=== PATIENT | female | born 1950 | race Two or more races ===

== ENCOUNTER 2017-05-22 09:48 | Outpatient (CLI) | payer OTHER | END 2017-05-22 10:18 | disposition home or self-care (01) | LOC: SONOGRAMA 09:48 | DX: R10.84 Generalized abdominal pain (principal) ==

== ENCOUNTER 2017-05-22 10:15 | Outpatient (CLI) | payer OTHER | END 2017-05-22 10:28 | disposition home or self-care (01) | LOC: LAB 10:15 | DX: E11.65 Type 2 diabetes mellitus with hyperglycemia (principal); D68.8 Other specified coagulation defects; E03.8 Other specified hypothyroidism; E78.2 Mixed hyperlipidemia ==

== ENCOUNTER → 2017-07-12 | Outpatient (CLI) | payer OTHER | END | disposition home or self-care (01) | LOC: RAD 11:46 | DX: S22.32XA Fracture of one rib, left side, initial encounter for closed fracture (principal) ==

== ENCOUNTER → 2017-12-10 | Outpatient (CLI) | payer OTHER | END | disposition home or self-care (01) | LOC: RAD 10:59 | DX: I10 Essential (primary) hypertension (principal); H40.1133 Primary open-angle glaucoma, bilateral, severe stage; H26.499 Other secondary cataract, unspecified eye; Z01.818 Encounter for other preprocedural examination ==

== ENCOUNTER 2020-12-02 09:05 | Outpatient (CLI) | payer OTHER | END 2020-12-02 09:12 | disposition home or self-care (01) | LOC: MAMO-SONO 09:05 | PROVIDERS: ATTEND Specialist | DX: R92.1 Mammographic calcification found on diagnostic imaging of breast (principal); Z12.31 Encounter for screening mammogram for malignant neoplasm of breast; I10 Essential (primary) hypertension; J45.998 Other asthma; M41.84 Other forms of scoliosis, thoracic region ==

== ENCOUNTER 2021-09-07 12:45 | Outpatient (CLI) | payer OTHER | END 2021-09-07 12:50 | disposition home or self-care (01) | LOC: NUCLEAR 12:45 | PROVIDERS: ATTEND Internal Medicine Rheumatology | DX: M81.0 Age-related osteoporosis without current pathological fracture (principal) ==